=== PATIENT | male | born 1930 | race Caucasian/White ===

== ENCOUNTER → 2017-05-03 | Outpatient (CLI) | payer OTHER, MEDICARE | LOC: SEN 09:14 | DX: C61 Malignant neoplasm of prostate (principal); G62.9 Polyneuropathy, unspecified; I10 Essential (primary) hypertension; B02.29 Other postherpetic nervous system involvement; M19.90 Unspecified osteoarthritis, unspecified site ==

== ENCOUNTER → 2017-08-22 | Outpatient (CLI) | payer OTHER, MEDICARE | LOC: CAT 15:14 | DX: I10 Essential (primary) hypertension (principal); G31.89 Other specified degenerative diseases of nervous system; R26.81 Unsteadiness on feet; Z91.81 History of falling ==

== ENCOUNTER 2018-07-08 19:13 | Emergency (ER) | payer OTHER, MEDICARE ==
[~2018-07-08] VITALS: Ht 185.4 cm; Wt 90.7 kg
[2018-07-08 20:27] LABS: URINE BILIRUBIN NEGATIVE (Negative); URINE BLOOD NEGATIVE (Negative); URINE CLARITY CLEAR; URINE COLOR YELLOW; URINE GLUCOSE-RANDOM* NEGATIVE (Negative); URINE KETONES NEGATIVE (Negative); URINE LEUKOCYTES-REFLEX NEGATIVE (Negative); URINE NITRITE-REFLEX NEGATIVE (Negative); URINE PROTEIN (DIPSTICK) NEGATIVE (Negative); URINE SPECIFIC GRAVITY >= 1.030 (1.005-1.035); URINE UROBILINOGEN 0.2 E.U./dl (0.2-1.0)
[2018-07-08 21:12] LABS: ANION GAP 4 mmol/L (7-16); BUN 27 mg/dL (7-18); CALCIUM 9.1 mg/dL (8.5-10.1); CHLORIDE 103 mmol/L (98-107); CO2 32 mmol/L (21-32); CREATININE 1.2 mg/dL (0.7-1.3); GLUCOSE 115 mg/dL (74-106); POTASSIUM 3.8 mmol/L (3.5-5.1); SODIUM 139 mmol/L (136-145)
[2018-07-08 21:21] LABS: ALBUMIN 3.2 g/dL (3.4-5.0); LIPASE 131 U/L (73-393); SGOT 21 U/L (15-37); SGPT 36 U/L (30-65); TOTAL BILIRUBIN 0.7 mg/dL (<0.1-1.0); TOTAL PROTEIN 7.2 g/dL (6.4-8.2); TROPONIN-I <0.06 ng/mL (<0.06)
[2018-07-08 21:29] LABS: HEMATOCRIT 42.9 % (42.0-52.0); HEMOGLOBIN 14.4 gm/dL (14.0-18.0); MCH 30.9 pg (26.0-34.0); MCHC 33.7 g/dL (28.0-37.0); MCV 91.9 fL (80.0-100.0); PLATELET COUNT 182 thou/uL (150-400); RBC 4.67 mil/uL (4.50-6.00); RDW 14.3 % (10.5-14.5); WBC 6.4 thou/uL (4.0-11.0)
[2018-07-08 22:13] LABS: ABSOLUTE NEUTROPHILS 3.5 thou/uL (1.4-8.2); ATYPICAL LYMPHS 22 %
[2018-07-09 00:33] VITALS: BP 133/66
--- NOTE | 2018-07-09 13:41 | EKG ---
[facility] [place] [address] ELECTROCARDIOGRAM REPORT Name: GENIE VENTURA PIA Room #: DEP 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1930 Requested By: Rainer Pryor Order Number: [id number] MD: Juve Miller Measurements Intervals Isabella Rate: 66 P: UT: QRS: -52 QRSD: 110 T: 86 QT: 393 QTc: 412 Interpretive Statements Sinus rhythm with first-degree AV block Left anterior fascicular block Low voltage, precordial leads Abnormal R-wave progression, early transition Borderline repolarization abnormality No previous ECG available for comparison Electronically Signed On 07-09-2018 13:40:48 CDT by Juve Miller [email or web address] ��������������������������������������������� <ELECTRONICALLY SIGNED> ���������������������������������������� By: Juve Miller MD, [facility] ��������������������������������������������� 07/09/18 1340 [id number] Juve Miller MD, FAC /EPI
== END 2018-07-09 01:07 | disposition home or self-care (01) ==
LOC: ER 19:13
PROVIDERS: Emergency Medicine
DX: K59.00 Constipation, unspecified (principal); I10 Essential (primary) hypertension; K21.9 Gastro-esophageal reflux disease without esophagitis; Z85.46 Personal history of malignant neoplasm of prostate

== ENCOUNTER → 2018-09-26 | Outpatient (CLI) | payer OTHER, MEDICARE ==
[~2018-09-26] VITALS: Ht 154.9 cm; Wt 86.6 kg
[~2018-09-26] MED LIST: DIOVAN160 MG PO; FISH OIL 1,001000 M2 PO; HYDROCHLOROTH12.5 M2 PO; MAGOX 400400 MG PO; OXYBUTYNIN 5 MG5 M2 PO; PROTONIX 20 MG20 M1 PO; TRAMADOL 50 MG50 MG PO; UNICOMPLEX M TA1 TA1 PO; VITAMIN B-12500 MCG PO; VITAMINC500 PO
--- NOTE | ~2018-09-26 | HPC ---
[facility] [place] [address] PAIN MANAGEMENT CONSULTATION Name: GENIE VENTURA Room #: REG [facility] JohnsonWilliamAbigail.#: [id number] Admission: 09/26/18 ������������������ Attend Phys: Manjinder Andre DO Discharge: ������������������ Date of : 32 Report #: [id number] THIS REPORT FOR: //name// CC: Artur Andre DATE OF SERVICE: 09/26/2018 REFERRING PHYSICIAN: Artur Avila MD. CHIEF COMPLAINT: Low back pain, bilateral buttock and posterolateral thigh pain. HISTORY OF PRESENT ILLNESS: As you know, the patient is a pleasant 87-year-old male who has been referred to our service to discuss treatment options for low back pain, bilateral upper buttock and posterolateral thigh pain. The patient has been sent to us by his primary care physician, Dr. Brian Avila, for evaluation after the patient had failed conservative treatment options. The patient comes to us today reporting a pain score of 8/10. He has not undergone any formalized physical therapy. He is doing some home physical stretching and traction techniques, but nothing formalized. He was started on tramadol, which he found unhelpful. The patient has had a significant treatment for prostate cancer, undergoing prostatectomy 20 years ago, with recurrence of his prostate cancer requiring 37 sessions of radiation via external beam. He appears to be recovering from this treatment. He has been referred to our clinic today without any imaging studies for evaluation. The patient reports today pain is continuous, steady and constant, describes the pain as aching, throbbing, sharp, places current pain score 8/10, daily average at 8/10, worst pain has been 10/10. The patient states the pain is exacerbated with getting up and sitting back down, improves with lying down on his back. The patient indicates that his pain has intensified after his external beam radiation. There has been no followup from an imaging standpoint in regards to his prostate issues, nor evaluation of the low back with exacerbation of symptoms after recurrence of his prostate cancer. PAST MEDICAL HISTORY: 1. Hypertension. 2. Degenerative joint disease. 3. Osteoarthritis. 4. Prostate cancer, status post prostatectomy 20 years ago with recurrence of prostate cancer and 37 sessions of external beam radiation. PAST SURGICAL HISTORY: 1. Tonsillectomy. [address] [address] PAIN MANAGEMENT CONSULTATION Name: GENIE VENTURA NOBLE Room #: REG [facility]..#: [id number] Admission: 09/26/18 ������������������ Attend Phys: Manjinder Andre DO Discharge: ������������������ Date of : 32 Report #: [id number] 2. Appendectomy. 3. Prostatectomy. SOCIAL HISTORY: The patient denies tobacco, alcohol, IV or illicit drug use. 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 He is working, not receiving workmen's compensation nor is trying to obtain disability benefits. He is not in litigation in regards to pain. REVIEW OF SYSTEMS: Positive for weight change, decrease in appetite, weakness, hearing loss with tinnitus, shortness of breath with walking or lying flat, loss of appetite, changes in bowel movements, constipation, abdominal pain, frequent urination, nocturia, change of force or stream of urination, incontinence and dribbling to urine, low back pain, bilateral buttock and posterolateral thigh pain, weakness, excessive urination. All other review of systems negative per 12-point review of systems other than those listed in history of present illness. Pain impact score 44/70 indicating moderate interference of daily activity secondary to pain. ALLERGIES: No known drug allergies. CURRENT MEDICATIONS: Multivitamin 1 tab per day, ascorbic acid 500 mg once a day, magnesium oxide 400 mg once a day, omega-3 fish oil 1 tab per day, cyanocobalamin 500 mcg per day, pantoprazole 20 mg once a day, oxybutynin 5 mg twice a day, valsartan 160 mg once a day, hydrochlorothiazide 12.5 mg once a day. IMAGING: No imaging available. PQRS: The patient has known arthritic changes of the lumbar spine, bilateral knees, no rheumatoid arthritis. He is placing pain intensity 8/10. He is a fall risk, but has not had a fall in the last 3 months. He is not utilizing any type of ambulatory device. He is not on blood thinners. He is treated for hypertension. He is not on the long-term opioids, but does have a low opioid addiction potential, is placing pain impact score 44/70, moderate interference of daily activities secondary to pain. PHYSICAL EXAMINATION: VITAL SIGNS: Blood pressure 143/73, pulse 70, respiratory rate 16 and unlabored. The patient is 100% on room air, height 6 feet 1 inch tall, weight 191 pounds. GENERAL: Well-developed, well-nourished, well-hydrated 87-year-old male, appearing stated age, placing current pain score at 8/10. HEENT: Normocephalic, atraumatic. Pupils equal, round, reactive to light. Extraocular muscles are intact. Sclerae nonicteric without injection. [facility] [address] [place] [address] PAIN MANAGEMENT CONSULTATION Name: GENIE VENTURA Room #: REG [facility]#: [id number] Admission: 09/26/18 ������������������ Attend Phys: Manjinder Andre DO Discharge: ������������������ Date of : 32 Report #: [id number] NEUROLOGIC: Cranial nerves 2 through 12 grossly intact. Speech is fluent. The patient deemed a good historian. LUNGS: Clear, no wheeze, rhonchi or rales. CARDIOVASCULAR: Regular. No appreciable gallop, no rub. ABDOMEN: Soft, nontender, nondistended, normoactive bowel sounds. EXTREMITIES: Show no clubbing, no cyanosis, and no edema. MUSCULOSKELETAL: Lower extremity strength appears symmetrical 5/5. There does not appear to be any giveaway strength secondary to pain. Muscle bulk and tone are symmetrical in comparing left lower extremity to right. Ankle clonus negative. Babinski is negative. Lumbar provocation testing is met with increasing pain, mainly with extension and rotation of the lateral lumbar spine. Seated straight leg raising negative. Supine straight leg raising mildly positive. Jerad test negative. Gait mildly antalgic. Station normal. Stance slightly forward flexed lumbar spine. ASSESSMENT: 1. Symptomatic lumbar radiculopathy. 2. Lumbosacral spondylosis with radiculopathy. 3. Chronic intractable pain. PLAN: 1. Based on today's physical exam and history the patient has provided, the description the patient uses in regards to pain as well as the location of symptoms and the provocating factors, likely source of the patient's pain is lumbar radiculopathy. The patient comes to us today without imaging studies, so it is difficult to determine if his symptoms are related to central canal stenosis or bilateral neural foraminal stenosis. There is also no way for us to determine whether or not the patient might have concerns of other disease processes in the lumbar spine. It is somewhat concerning to have an 87-year-old male with recurrent prostate cancer, complaining of increasing low back pain. The patient has undergone external beam radiation, but this does not rule out the possibility of complications from his prostate cancer and external beam radiation in the lumbar spine. We discussed with the patient treatment options for typical lumbar radicular symptoms, whether this be central canal stenosis or neural foraminal stenosis. Following was discussed with the patient today 2. We discussed physical therapy, stretching exercises, core strengthening, for which the patient would do better from a pain control standpoint and from a stabilization standpoint. We discussed medication management, making adjustments in his current medication for pain control. We discussed epidural injections under fluoroscopic guidance. We also discussed surgical options. After reviewing risks and benefits of all proposed treatment options, the patient chose to move forward with a lumbar epidural injection. 3. The patient was advised risks and benefits of a lumbar epidural injection. These risks include but are not necessarily limited to bleeding, bruising, [facility] [address] [place] [address] PAIN MANAGEMENT CONSULTATION Name: GENIE VENTURA PIA [facility] [id number] Admission: 09/26/18 ������������������ Attend Phys: Manjinder Andre DO Discharge: ������������������ Date of : 32 Report #: [id number] infection, worsening pain, no relief of pain, also risk of temporary or permanent muscle weakness, temporary or permanent nerve damage, possible paralysis, post-dural puncture headache and . The patient states understood and wished to proceed. 4. No medication changes made at today's visit. The patient will continue current medical therapy as previously prescribed. 5. We will see the patient back in followup visit on an as needed basis for possible next in the series of epidural injections. I have advised the patient if he does not note improvement in symptoms with today's procedure, he should contact his primary care physician to begin imaging workups for further evaluation. 6. We wish to thank Dr. Artur Avila for the referral of the patient to our clinic. We will keep you apprised of his response to treatment as we address suspected lumbar radiculopathy. Again, we wish to thank you for the opportunity to see the patient in consultation. PROCEDURE NOTE DESCRIPTION OF PROCEDURE: L5-S1 interlaminar epidural steroid injection under fluoroscopic guidance. This is the first procedure of the first series that the patient is undergoing. After obtaining written consent, the patient was taken back to the fluoroscopy suite, placed in a prone position with pillow under the abdomen to decrease lumbar lordosis. The skin overlying the lumbosacral area was then prepped and draped in aseptic fashion. The L5-S1 vertebral interspace was then identified by AP fluoroscopy. The skin and subcutaneous tissue overlying the target site of injection was anesthetized with 3 mL 1% lidocaine. A 20-gauge 3-1/2 inch Tuohy needle was then advanced under fluoroscopic guidance towards the epidural space using a paracentral approach. The epidural space was identified using loss of resistance to air technique. After negative aspiration for heme or cerebrospinal fluid, a total of 1 mL of Omnipaque was injected. A lumbar epidurogram was confirmed using both AP and lateral fluoroscopy. After negative aspiration for heme or cerebrospinal fluid, 5 mL of solution containing 2 mL 40 mg per mL, 80 mg total triamcinolone, 3 mL lidocaine 1% was injected in increments. Contrast spread was noted in posterior epidural space. The needle was then retracted approximately half way and needle tract flushed with 1 mL of 1% lidocaine. Needle was then removed. There were no apparent sensory or motor deficits in the lower extremity following the procedure. A sterile bandage was placed over the injection site. The heart rate, pulse, oximetry and blood pressure were continuously monitored [address] [address] PAIN MANAGEMENT CONSULTATION Name: GENIE VENTURA PIA [facility] [id number] Admission: 09/26/18 ������������������ Attend Phys: Manjinder Andre DO Discharge: ������������������ Date of : 32 Report #: [id number] after the procedure. There were no apparent complications. The patient tolerated the procedure well and was carefully escorted to the recovery room in stable condition. There were no apparent complications. After meeting discharge criteria, the patient was then discharged home. ��������������������������������������������� ���������������������������������������� By: ��������������������������������������������� [id number] [id number] Manjinder Andre DO /nt
[2018-09-26 15:16] VITALS: BP 143/73
--- NOTE | 2018-09-26 15:33 | NUR ---
Pain Clinic Assessment: 1. History of Osteoarthritis: History of Rheumatoid Arthritis: 2. Height: 5 ft. 1 in. 154.9 cm. Weight: 191.0 lb. oz. 86.637 kg. Patient's BMI: 36.1 3. Vital Signs: BP: 143/73 Pulse: 70 Resp: 16 Temp: 02 Sat: 100 ECG Mon: 4. Pain Intensity: 8 5. Fall Risk: Dizziness: N Needs help standing or walking: Y Fallen in the last 3 months: N Fall risk comments: 6. Patient on Blood Thinner: None 7. History of Hypertension: Y 8. Opioid Therapy greater than 6 weeks: Opiate Contract Signed: 9. Risk Assessment Tool Provided: LOW 10. Functional Assessment Tool: 11. Recreational Drug Use: Never Drug Type: Tobacco Use: Never Smoker Tobacco Type: Amount or Packs/day: How Many Years: Alcohol Use: No Frequency: Quant:
== END | disposition home or self-care (01) ==
LOC: PAIN 06:57
DX: M47.27 Other spondylosis with radiculopathy, lumbosacral region (principal); G89.29 Other chronic pain; I10 Essential (primary) hypertension; M19.90 Unspecified osteoarthritis, unspecified site; M17.0 Bilateral primary osteoarthritis of knee; Z85.46 Personal history of malignant neoplasm of prostate; Z90.49 Acquired absence of other specified parts of digestive tract; Z98.890 Other specified postprocedural states; Z79.899 Other long term (current) drug therapy

== ENCOUNTER → 2018-10-17 | Outpatient (CLI) | payer OTHER, MEDICARE ==
[~2018-10-17] VITALS: Ht 185.4 cm; Wt 84.1 kg
[2018-10-17 10:31] VITALS: BP 140/76
--- NOTE | 2018-10-17 10:51 | NUR ---
Pain Clinic Assessment: 1. History of Osteoarthritis: BACK History of Rheumatoid Arthritis: Not Applicable 2. Height: 6 ft. 1 in. 185.4 cm. Weight: 185.4 lb. oz. 84.097 kg. Patient's BMI: 24.5 3. Vital Signs: BP: 140/76 Pulse: 60 Resp: 16 Temp: 02 Sat: 100 ECG Mon: 4. Pain Intensity: 1-2 5. Fall Risk: Dizziness: N Needs help standing or walking: N Fallen in the last 3 months: N Fall risk comments: 6. Patient on Blood Thinner: None 7. History of Hypertension: Y 8. Opioid Therapy greater than 6 weeks: N Opiate Contract Signed: 9. Risk Assessment Tool Provided: LOW 10. Functional Assessment Tool: 44/ 11. Recreational Drug Use: Never Drug Type: Tobacco Use: Never Smoker Tobacco Type: Amount or Packs/day: How Many Years: Alcohol Use: No Frequency: Quant:
--- NOTE | 2018-10-24 13:04 | HPC ---
[facility] [place] [address] [place] [address] PAIN MANAGEMENT CONSULTATION Name: GENIE VENTURA Room #: REG [facility]..#: [id number] Admission: 10/17/18 ������������������ Attend Phys: Manjinder Andre DO Discharge: ������������������ Date of : 32 Report #: [id number] THIS REPORT FOR: //name// CC: Artur Andre DATE OF SERVICE: 10/17/2018 REFERRING PHYSICIAN: Artur Avila MD CHIEF COMPLAINT: Low back pain, bilateral buttock and posterolateral thigh pain. HISTORY OF PRESENT ILLNESS: As you know, the patient is a very pleasant 88-year-old male referred to our service to discuss treatment options for low back pain, bilateral upper buttock and posterolateral thigh pain. We saw the patient in consultation 09/26/2018 where he received epidural injection under fluoroscopic guidance to address lumbar radicular symptoms. He returns today in followup visit indicating near complete resolution of symptoms. He is placing his current pain score no greater than 1-2/10. He returns today in followup visit to discuss options for treatment if his pain does return. He has been able to return to all activities of daily living without significant pain interference, very pleased about that the response to the initial epidural. ALLERGIES: No known drug allergies. CURRENT MEDICATIONS: Multivitamin, ascorbic acid, magnesium oxide, omega-3 fish oil, cyanocobalamin, pantoprazole, oxybutynin, valsartan, and hydrochlorothiazide. SOCIAL HISTORY: The patient denies tobacco, alcohol, IV, or illicit drug use. 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 He is working, not receiving workmen's compensation, accompanied by his daughter present in room today. PQRS: The patient has arthritic changes of lumbar spine, bilateral knees, but no rheumatoid arthritis. He is placing pain intensity today 1-2/10. He is not a fall risk, has not had fall in the last 3 months. He is not on blood thinners. He is treated for hypertension. He is not on any opioids and does have a low opioid addiction potential. He is placing pain impact score 44/70. PHYSICAL EXAMINATION: VITAL SIGNS: Blood pressure 140/76, pulse is 60, respiratory rate 16 and unlabored. The patient is 100% on room air, height 6 feet 1 inch tall, weight 185.4 pounds, BMI calculated 24.5. GENERAL: Well-developed, well-nourished, well-hydrated, 88-year-old male, [place] [address] PAIN MANAGEMENT CONSULTATION Name: GENIE VENTURA Room #: REG CLI [facility]#: [id number] Admission: 10/17/18 ������������������ Attend Phys: Manjinder Andre DO Discharge: ������������������ Date of : 32 Report #: [id number] appearing stated age. Pain is rated 1-2/10. HEENT: Normocephalic, atraumatic. Pupils equal, round, reactive to light. Speech fluent. EXTREMITIES: Show no clubbing, no cyanosis, and no edema. MUSCULOSKELETAL: Lower extremity strength remains symmetrical 5/5. Giveaway strength is reduced today as he is experiencing no pain with these maneuvers. Seated straight leg raising negative. Supine straight leg raising remains positive. Jerad's test negative. Modified Gaenslen's positive for axial low back pain. ASSESSMENT: 1. Symptomatic lumbar radiculopathy. 2. Lumbosacral spondylosis with radiculopathy. 3. Chronic intractable pain. PLAN: 1. The patient has returned today in followup visit having noted excellent improvement in overall pain. He is now placing pain score no greater than 1-2/10. He is extremely pleased with response to the initial injection. He returns today in followup visit, specifically to discuss treatment options if his pain does return. At present, he has been able to return to all activities of daily living without pain interference. He is able to go about all of his reported duties without pain or paresthesias. At this point, I would indicate to the patient, we will delay the next in the series of epidural injections until which time his pain returns to a level of intolerable. We would be more than willing to provide a return visit if that occurs. 2. The patient will be provided a return visit upon phone call. We recommend next in the series of epidural injections if his pain does return. We are hopeful this is a long period in the future. We are pleased to see he has done well, but will be available to see him back to do the next in a series of epidural injections. If these are ineffective, then look towards other more aggressive treatment options. ��������������������������������������������� <ELECTRONICALLY SIGNED> ���������������������������������������� By: Manjinder Andre DO ��������������������������������������������� 10/24/18 1304 [id number] Manjinder Andre DO /nt
== END ==
LOC: PAIN 06:45
DX: M47.27 Other spondylosis with radiculopathy, lumbosacral region (principal); G89.29 Other chronic pain; M79.651 Pain in right thigh; M79.652 Pain in left thigh

== ENCOUNTER → 2019-03-12 | Outpatient (CLI) | payer OTHER, MEDICARE | LOC: HYPER 08:00 | DX: L89.320 Pressure ulcer of left buttock, unstageable (principal); I10 Essential (primary) hypertension; M54.42 Lumbago with sciatica, left side; M54.41 Lumbago with sciatica, right side; R63.0 Anorexia; R26.89 Other abnormalities of gait and mobility; Z85.46 Personal history of malignant neoplasm of prostate; Z87.891 Personal history of nicotine dependence ==

== ENCOUNTER → 2019-05-16 | Outpatient (CLI) | payer OTHER, MEDICARE ==
[~2019-05-16] VITALS: Ht 185.4 cm; Wt 86.7 kg
--- NOTE | ~2019-05-16 | HPC ---
[facility] [place] [address] PAIN MANAGEMENT CONSULTATION Name: GENIE VENTURA Room #: REG [facility] M..#: [id number] Admission: 05/16/19 Attend Phys: Manjinder Andre DO Discharge: Date of : 32 Report #: [id number] THIS REPORT FOR: //name// CC: Artur Andre DATE OF SERVICE: 05/16/2019 CHIEF COMPLAINT: Low back pain, bilateral buttock and posterolateral thigh pain. HISTORY OF PRESENT ILLNESS: As you know, the patient is a very pleasant 88-year-old male referred to our service to discuss treatment options for bilateral low back pain, bilateral upper buttock and posterolateral thigh pain. The patient was seen in consultation per the request of Dr. Avila on 09/26/2018, diagnosed with lumbar radiculopathy as well as facet arthropathy of the lumbar spine and at that visit, we discussed treatment options to address ongoing pain including physical therapy, stretching exercise, core strengthening, medication management, epidural injections, and surgical options. He underwent a lumbar epidural injection, which provided excellent benefit. We saw him back in consultation on 10/17/2018 and at that time, reporting 100% improvement in overall pain. He returns today in followup visit stating he has a pain score of 0/10 today. He states over the past couple of days, he had some exacerbation of symptoms that he placed at 1-2/10, but no new injury or trauma. He returns today to discuss options for treatment, if his pain does return. ALLERGIES: No known drug allergies. CURRENT MEDICATIONS: Multivitamin, ascorbic acid, magnesium oxide, omega-3 fish oil, cyanocobalamin, pantoprazole, oxybutynin, valsartan and hydrochlorothiazide. SOCIAL HISTORY: The patient denies tobacco, alcohol, or IV illicit drug use. 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 He is accompanied by his daughter, who is present in room today. PQRS: The patient has known arthritic changes of the lumbar spine, bilateral knees. No rheumatoid arthritis. He is placing pain intensity of 0/10. He is not a fall risk, has not had a fall in last 6 months. He is not on blood thinners. He is treated for hypertension. He is not on chronic opioids, has a low opioid addiction potential based on our assessment tool. Pain impact score today is 24/70, 44/70 prior to today. PHYSICAL EXAMINATION: VITAL SIGNS: Blood pressure 155/72, pulse 60, respiratory rate 14 and [facility] [address] [place] [address] PAIN MANAGEMENT CONSULTATION Name: GENIE VENTURA Room #: REG [facility]#: [id number] Admission: 05/16/19 Attend Phys: Manjinder Andre DO Discharge: Date of : 32 Report #: [id number] unlabored. The patient is 99% on room air, height 6 feet 1 inch tall, and weight 191.2 pounds. BMI calculated 25.2. GENERAL: Well-developed, well-nourished, well-hydrated, 88-year-old male appearing stated age. Pain is rated today at around 0/10. HEENT: Normocephalic, atraumatic. Pupils equal, round, reactive. Speech is fluent. EXTREMITIES: Show no clubbing, no cyanosis, and no edema. MUSCULOSKELETAL: Lower extremity strength appears symmetrical again today 5/5. Giveaway strength is not noted with any maneuver. Seated straight leg raising negative. Supine straight leg raising is positive. Jerad's test negative. Modified Gaenslen's positive for axial low back pain. Gait appears normal. Stance slightly forward flexed to lumbar spine, loss of lordotic curvature. ASSESSMENT: 1. Symptomatic lumbar radiculopathy. 2. Lumbosacral spondylosis with radiculopathy. 3. Chronic intractable pain. PLAN: 1. The patient returns today in followup visit now noting 0/10 pain. Over the past couple of days, he states his pain was at a level of 2-3/10. He woke this morning and pain is improved. He and I discussed the possibility of undergoing an epidural injection. We will both determine to delay would be most appropriate. He and I did discuss that if his symptoms do return, we would be more than willing to see him back in followup visit to undergo next in the series of epidural injections. We are pleased to see the patient is doing well from a pain standpoint. We will see him back on an as needed basis. 2. No medication changes made at today's visit. The patient will continue current medical therapy as previously prescribed. 3. We will see the patient back in followup visit on an as needed basis for next in the series of lumbar epidural injections. We will be returning his care to your capable services, but be available to see him back when necessary. By: [id number] Manjinder Andre DO /nt
[2019-05-16 14:05] VITALS: BP 155/72
--- NOTE | 2019-05-16 14:19 | NUR ---
Pain Clinic Assessment: 1. History of Osteoarthritis: BACK History of Rheumatoid Arthritis: DENIES 2. Height: 6 ft. 1 in. 185.4 cm. Weight: 191.2 lb. oz. 86.728 kg. Patient's BMI: 25.2 3. Vital Signs: BP: 155/72 Pulse: 60 Resp: 14 Temp: 02 Sat: 99 ECG Mon: 4. Pain Intensity: 0 5. Fall Risk: Dizziness: N Needs help standing or walking: N Fallen in the last 3 months: N Fall risk comments: 6. Patient on Blood Thinner: None 7. History of Hypertension: Y 8. Opioid Therapy greater than 6 weeks: N Opiate Contract Signed: 9. Risk Assessment Tool Provided: LOW 10. Functional Assessment Tool: 11. Recreational Drug Use: Never Drug Type: Tobacco Use: Never Smoker Tobacco Type: Amount or Packs/day: How Many Years: Alcohol Use: No Frequency: Quant:
== END ==
LOC: PAIN 07:02
DX: M47.27 Other spondylosis with radiculopathy, lumbosacral region (principal); M51.16 Intervertebral disc disorders with radiculopathy, lumbar region; G89.4 Chronic pain syndrome; Z79.899 Other long term (current) drug therapy; Z88.8 Allergy status to other drugs, medicaments and biological substances

== ENCOUNTER → 2019-06-12 | Outpatient (CLI) | payer OTHER, MEDICARE ==
[~2019-06-12] VITALS: Ht 185.4 cm; Wt 88.4 kg
[2019-06-12 08:10] VITALS: BP 129/81
--- NOTE | 2019-06-12 08:17 | NUR ---
Pain Clinic Assessment: 1. History of Osteoarthritis: BACK History of Rheumatoid Arthritis: Not Applicable 2. Height: 6 ft. 1 in. 185.4 cm. Weight: 194.8 lb. oz. 88.361 kg. Patient's BMI: 25.7 3. Vital Signs: BP: 129/81 Pulse: 69 Resp: 16 Temp: 02 Sat: 98 ECG Mon: 4. Pain Intensity: 4-5 5. Fall Risk: Dizziness: N Needs help standing or walking: N Fallen in the last 3 months: N Fall risk comments: 6. Patient on Blood Thinner: None 7. History of Hypertension: Y 8. Opioid Therapy greater than 6 weeks: N Opiate Contract Signed: 9. Risk Assessment Tool Provided: LOW 10. Functional Assessment Tool: / 11. Recreational Drug Use: Never Drug Type: Tobacco Use: Never Smoker Tobacco Type: Amount or Packs/day: How Many Years: Alcohol Use: No Frequency: Quant:
--- NOTE | 2019-06-19 07:45 | HPC ---
[facility] [address] [place] [address] PAIN MANAGEMENT CONSULTATION Name: GENIE VENTURA Room #: REG [facility]..#: [id number] Admission: 06/12/19 Attend Phys: Manjinder Andre DO Discharge: Date of : 32 Report #: [id number] THIS REPORT FOR: cc: Brian Avila MD, Christopher B. MD Johnson, James E. DO ~ THIS REPORT FOR: //name// DATE OF SERVICE: 06/12/2019 REFERRING PHYSICIAN: Dr. Brian Avila CHIEF COMPLAINT: Low back pain, bilateral buttock and posterolateral thigh pain. HISTORY OF PRESENT ILLNESS: As you know, the patient is a very pleasant 88-year-old male who returns today in followup visit, now reporting pain score anywhere from 3-5/10. He states his pain has reached a level of intolerability and he was returned to undergo next in the series of epidural injections. As you are aware, previous epidural injection gave excellent benefit. He returns today requesting next in the series in hopes of improving pain. He denies injury or trauma that may have led to symptoms reoccurrence. He describes the pain as sharp and aching in sensation as well as numbness and tingling. He indicates a low back and bilateral legs as the distribution. Bending and getting out of a chair exacerbate symptoms; nothing tends to improve his pain except for the previous epidural injection. He returns today for next in the series of epidural injections. ALLERGIES: No known drug allergies. CURRENT MEDICATIONS: Multivitamin, ascorbic acid, magnesium oxide, omega-3 fish oil, cyanocobalamin, oxybutynin, valsartan, and hydrochlorothiazide. SOCIAL HISTORY: The patient denies tobacco, alcohol, IV or illicit drug use. 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 He is accompanied by his daughter present in room today. IMAGING: No new imaging available. PQRS: The patient has known arthritic changes of the lumbar spine, bilateral knees. No rheumatoid arthritis. He is placing pain intensity up to 4-5/10. He is not a fall risk, has not had a fall in last 3 months. He is not on blood thinners, but is treated for hypertension. He is not on chronic opioids and has a low opioid addiction potential based on our assessment tool. Pain impact [address] [address] PAIN MANAGEMENT CONSULTATION Name: GENIE VENTURA [place] Room #: REG [facility].#: [id number] Admission: 06/12/19 Attend Phys: Manjinder Andre DO Discharge: Date of : 32 Report #: [id number] score 44/70 indicating moderate to severe interference of daily activities secondary to pain. PHYSICAL EXAMINATION: VITAL SIGNS: Blood pressure 129/81, pulse 69, respiratory rate 16 and unlabored. The patient is 98% on room air, height 6 feet 1 inch tall, weight 194.8 pounds and BMI calculated 25.7. GENERAL: Well-developed, well-nourished, well-hydrated, 88-year-old male appearing stated age, pain is rated today 4-5/10. HEENT: Normocephalic, atraumatic. Pupils equal, round, reactive to light. EXTREMITIES: Show no clubbing, no cyanosis, and no edema. MUSCULOSKELETAL: Lower extremity strength appears symmetrical again today 5/5, intact to light touch from L1 through S2 dermatomes. Seated straight leg raising negative. Supine straight leg raising positive with more leftward positive than right, though both positive above 65 degrees. Jerad's test negative. Modified Gaenslen's positive for axial low back pain. Ankle clonus negative. Gait normal. ASSESSMENT: 1. Symptomatic lumbar radiculopathy. 2. Lumbosacral spondylosis with radiculopathy. 3. Chronic intractable pain. PLAN: 1. The patient has returned today in followup visit requesting next in the series of lumbar epidural injections under fluoroscopic guidance. The patient states he has done very well with previous epidural injection performed on 09/26/2018. We saw the patient back in followup visit 10/17/2018. He was doing very well. He has been lost a followup visit until today where he has returned requesting next in the series of epidural injections. He states that his pain be returned spontaneously without inciting injury or trauma. He returns today, requesting an epidural injection under fluoroscopic guidance. He has been advised risks and benefits of the procedure, states he understood, and wished to proceed. 2. No medication changes made at today's visit. The patient will continue current medical therapy as prior prescribed. 3. We will see the patient back in followup visit on an as needed basis for possible next in the series of epidural injections. PROCEDURE NOTE DESCRIPTION OF PROCEDURE: L5-S1 interlaminar epidural steroid injection under fluoroscopic guidance. This is the second procedure of the first series that the patient is undergoing. [facility] [address] [place] [address] PAIN MANAGEMENT CONSULTATION Name: GENIE VENTURA Room #: REG [facility] [id number] Admission: 06/12/19 Attend Phys: Manjinder Andre DO Discharge: Date of : 32 Report #: [id number] After obtaining written consent, the patient was taken back to the fluoroscopy suite, placed in a prone position with pillow under the abdomen to decrease lumbar lordosis. The skin overlying the lumbosacral area was then prepped and draped in aseptic fashion. The L5-S1 vertebral interspace was then identified by AP fluoroscopy. The skin and subcutaneous tissue overlying the target site of injection was anesthetized with 3 mL 1% lidocaine. A 20-gauge 3-1/2 inch Tuohy needle was then advanced under fluoroscopic guidance towards the epidural space using a left parasagittal approach. The epidural space was identified using loss of resistance to air technique. After negative aspiration for heme or cerebrospinal fluid, a total of 1 mL of Omnipaque was injected. A lumbar epidurogram was confirmed using both AP and lateral fluoroscopy. After negative aspiration for heme or cerebrospinal fluid, 5 mL of a solution containing 2 mL 40 mg per mL, 80 mg total triamcinolone along with 3 mL of lidocaine 1% was injected in increments. Contrast spread was noted posterior epidural space. The needle was then retracted approximately half way and needle tract flushed with 1 mL of 1% lidocaine. Needle was then removed. There were no apparent sensory or motor deficits in the lower extremity following the procedure. A sterile bandage was placed over the injection site. The heart rate, pulse, oximetry and blood pressure were continuously monitored after the procedure. There were no apparent complications. The patient tolerated the procedure well and was carefully escorted to the recovery room in stable condition. There were no apparent complications. After meeting discharge criteria, the patient was then discharged home. <ELECTRONICALLY SIGNED> By: Manjinder Andre DO 06/19/19 0745 [id number] Manjinder Andre DO /shelly
== END | disposition home or self-care (01) ==
LOC: PAIN 06:45
DX: M47.27 Other spondylosis with radiculopathy, lumbosacral region (principal); G89.29 Other chronic pain; M19.90 Unspecified osteoarthritis, unspecified site; Z98.890 Other specified postprocedural states; Z79.899 Other long term (current) drug therapy

== ENCOUNTER → 2019-09-26 | Outpatient (CLI) | payer OTHER, MEDICARE | LOC: HYPER 11:43 | DX: S31.829D Unspecified open wound of left buttock, subsequent encounter (principal); L57.8 Other skin changes due to chronic exposure to nonionizing radiation; R26.89 Other abnormalities of gait and mobility; M54.42 Lumbago with sciatica, left side; M54.41 Lumbago with sciatica, right side; C61 Malignant neoplasm of prostate; I10 Essential (primary) hypertension; Z90.49 Acquired absence of other specified parts of digestive tract; Z87.891 Personal history of nicotine dependence; Z85.46 Personal history of malignant neoplasm of prostate; X58.XXXD Exposure to other specified factors, subsequent encounter ==

== ENCOUNTER 2020-01-10 15:13 | Inpatient (IN) | payer OTHER, MEDICARE ==
[~2020-01-10] VITALS: Ht 185.4 cm; Wt 89.4 kg
[2020-01-10 15:19] VITALS: BP 134/75
[2020-01-10 16:24] LABS: HEMOGLOBIN 14.9 gm/dL (14.0-18.0); MCHC 33.2 g/dL (28.0-37.0); MCV 93.4 fL (80.0-100.0); PLATELET COUNT 175 thou/uL (150-400); RBC 4.82 mil/uL (4.50-6.00); RDW 13.5 % (10.5-14.5); WBC 9.2 thou/uL (4.0-11.0)
[2020-01-10 16:30] LABS: URINE BILIRUBIN NEGATIVE (Negative); URINE BLOOD 2+ (Negative); URINE CLARITY CLOUDY; URINE COLOR YELLOW; URINE GLUCOSE-RANDOM* NEGATIVE (Negative); URINE KETONES NEGATIVE (Negative); URINE PROTEIN (DIPSTICK) 2+ (Negative); URINE UROBILINOGEN 0.2 E.U./dl (0.2-1.0)
[2020-01-10 16:34] LABS: CALCIUM 9.3 mg/dL (8.5-10.1); CREATININE 1.3 mg/dL (0.7-1.3); POTASSIUM 4.5 mmol/L (3.5-5.1)
[2020-01-10 16:37] LABS: URINE LEUKOCYTES-REFLEX 3+ (Negative); URINE NITRITE-REFLEX POSITIVE (Negative)
[2020-01-10 16:40] LABS: ALBUMIN 3.6 g/dL (3.4-5.0); DIRECT BILIRUBIN 0.3 mg/dL (<0.1-0.2); TOTAL BILIRUBIN 1.6 mg/dL (0.2-1.0); TOTAL PROTEIN 7.5 g/dL (6.4-8.2)
[2020-01-10 16:44] LABS: CASTS None Seen /LPF (None Seen); CRYSTALS None Seen /LPF (None Seen); SQUAMOUS None Seen /LPF (0-3); URINE RBC 3-10 Few /HPF (0-2); URINE WBC-REFLEX >25 Many /HPF (0-5)
[2020-01-10 17:16] LABS: ABSOLUTE NEUTROPHILS 6.9 thou/uL (1.4-8.2)
[2020-01-10] MEDS ORDERED: LASIX 40 MG TAB40 MG PO (18:29)
[2020-01-10 19:37] VITALS: BP 138/71
[2020-01-10 20:03] VITALS: BP 127/60
[2020-01-10 21:04] VITALS: BP 132/69
[2020-01-10] MEDS ORDERED: POTASSIUM20 PO (22:09)
[2020-01-10] MEDS ORDERED: CIPRO250 M2 PO (22:10)
[2020-01-10] MEDS ORDERED: ONE DAILY COMP1 EAC1 PO (22:12)
[2020-01-10] MEDS ORDERED: CHILDREN'S ASPI81 M1 PO (22:12)
[2020-01-10] MEDS ORDERED: MAGNESIUM250 M1 PO (22:13)
[2020-01-10] MEDS ORDERED: B COMPLEX1 EACH PO (22:14)
--- NOTE | 2020-01-11 04:55 | NUR ---
Arrived from ER around 2019. Adm hx and assessment completed. Med rec verified with pt.'s . Pt. is very [place]. He requested for sleep med , [employer] notified and order for melatonin obtained.Ultram given for leg pain with some relief then tylenol also given a little later for back pain. He has been afebrile. Cont. on enhanced precaution pending COVID test results. Ambulated to bathroom x1 to void at HS,did not use urinal. Around 29 , he had an episode of shaking/chills though afebrile. He c/o back pain which he said he had for 2 yrs and had been getting injections to manage pain since he can't have surgery. He finally got some sleep after 010. Bed alarm on for safety.
[2020-01-11 05:53] LABS: HEMATOCRIT 40.5 % (42.0-52.0); HEMOGLOBIN 13.4 gm/dL (14.0-18.0); MCH 31.2 pg (26.0-34.0); MCHC 33.1 g/dL (28.0-37.0); MCV 94.1 fL (80.0-100.0); RBC 4.31 mil/uL (4.50-6.00); RDW 13.5 % (10.5-14.5); WBC 9.1 thou/uL (4.0-11.0)
[2020-01-11 06:22] LABS: CALCIUM 8.1 mg/dL (8.5-10.1); CREATININE 1.5 mg/dL (0.7-1.3); POTASSIUM 3.9 mmol/L (3.5-5.1)
[2020-01-11 06:35] VITALS: BP 96/57
[2020-01-11 07:22] VITALS: BP 108/58
[2020-01-11 14:58] VITALS: BP 151/73
--- NOTE | 2020-01-11 16:23 | NUR ---
PT ADMITTED RELATED TO Sepsis,fedver,UTI, R/O COVID. PT'S COVID TEST WAS NEGATIVE. HE IS ON IV ROCEPHIN AND PT AND OT ORDERED. CM REVIEWED CHART AND SPOKE WITH CARE TEAM. CM ATTEMTPED PT TO PT'S ROOM WIHT NO ANSWER. CM CALLED AND SPOKE WITH PT'S SPOUSE SHE INDICATED THEY RESIDE ON A FARM IN A HOUSE WITH 2 STEPS TO ENTER AND NONE INSIDE. 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 PT'S PCPC IS DR. MAURA JHAVERI. SHE INDICATED NO HH HX. SHE INDICATED THAT SHE ANTICAPTED PT RETURNING HOME ONCE MEDICALLY STABLE.
--- NOTE | 2020-01-11 17:08 | NUR ---
ASSUMED CARE OF PATIENT APPROX 1500. PT A&OX4, VSS, CHRONIC BACK PAIN. TRAMADOL GIVEN AND HEATING PAD ORDERED. PATIENT RESTING IN BED. NO SIGNS OF DISTRESS. WILL CONTINUE TO MONITOR.
[2020-01-11 19:42] VITALS: BP 141/63
--- NOTE | 2020-01-12 03:42 | NUR ---
ASSUMED CARE OF PT AT 1900. PT IS A/O X4 AND UP SBA TO THE BR. USES A URINAL WITH ASSISTANCE AT THE BEDSIDE. PT HAD AN ELEVATED TEMP. PRN TYLENOL GIVEN. C/O PAIN WHEN URINATING. MEDICATIONS GIVEN DIRECTED PER JUN. PT IS CURRENTLY LYING IN HIS BED AND APPEARS TO BE SLEEPING. FALL PRECAUTIONS ARE IN PLACE, CALL LIGHT IS WITHIN REACH. WILL CONTINUE TO MONITOR.
[2020-01-12 07:52] VITALS: BP 140/79
--- NOTE | 2020-01-12 10:12 | NUR ---
discussed during prime time via phone call, covid r/o and GI consulted.
--- NOTE | 2020-01-12 15:34 | NUR ---
ASSUMED CARE OF PATIENT AT SHIFT CHANGE. ASSESSMENT CHARTED. MEDICATIONS GIVEN PER MAR. VSS; PATIENT IS A&OX3-4 WITH SOME CONFUSION. VOIDS IN URINALBUT CAN BE INCONTINENT. ABX THX W FLUIDS INFUSING ON L WRIST W NO ISSUES. 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 WORKED W OT TODAY AND DID WELL. PATIENT GETS UP WITH STAND BY ASSISTANCE, REFUSES A WALKER BUT AMBULATES WELL. VOICES MILD BACK PAIN, THERMAL PAD IN PLACE. VOICES NO OTHER NEEDS. WILL CONTINUE TO MONITOR AND FOLLOW PLAN OF CARE
[2020-01-12 15:40] VITALS: BP 133/74
[2020-01-12 20:16] VITALS: BP 144/75
--- NOTE | 2020-01-13 00:01 | NUR ---
ASSUMED CARE OF PT AT 1900. PT IS A/O X4 AND UP X1 WITH BR. NO C/O PAIN OR DISCOMFORT. VSS. AFEBRILE. KPAD NOT IN PLACE AT THIS TIME. C/O INSOMNIA. PRN SLEEP MEDICAITON GIVEN DIRECTED. FALL PRECAUTIONS ARE IN PLACE, CALL LIGHT IS WITHIN REACH. WILL CONTINUE TO MONITOR.
[2020-01-13 07:07] LABS: HBsAG-EMPLOYEE EXPOSURE Negative (Negative); HCV AB-EMPLOYEE EXPOSURE <0.1 (0.0-0.9)
[2020-01-13 08:00] VITALS: BP 162/111
--- NOTE | 2020-01-13 13:24 | NUR ---
Assumed care of patient at 0700. Pt. calm and cooperative. No stated pain. Patient remains isolated for ESBL. Fall precautions in place.
[2020-01-13 15:33] VITALS: BP 155/72
[2020-01-13 20:55] VITALS: BP 157/90
--- NOTE | 2020-01-14 02:54 | NUR ---
patient aox3 confused and forgetful. patient has voided several times this shift, urine is yellow in color. patient denied burning during urination.patient incontinent this shift pericare and barrier cream applied as needed. patient ambulates slowly to the bathroom with steady gaits. patient in bed asleep at this time breathing regular and unlaboured.
--- NOTE | 2020-01-14 11:29 | NUR ---
Assumed patient care at 0715. Vital signs stable (except BP a little elevated, asymptomatic), ABD soft and non-tender, BS x's 4, skin is clean, warm and dry; he voices no complaints of pain. Patient continues to be impulsive, does not remember to use the call light. He is pleasantly confused at times.
--- NOTE | 2020-01-14 14:22 | NUR ---
PT IS PROGRESSING TOWARD GOAL OF DISCHARGING HOME. PT AND OT RECOMMENDING HOME HEALTH. CM ATTEMTPED PT TO PT'S ROOM BUT NO ANSWER. CM CALLED AND SPOKE WITH HIS DTR/DPOA AND SHE INDICATED THAT THEY WOULD BE RECEPTIVE TO SOME HH SERVICES IF RECOMMENDED UPON DC. SHE INDICATED NO PREFERENCE OF PROVIDERS. CM CONFIRMED ADDRESS AND PCP. CM ASKED DC BRAID MAKER TO FAX REFERRAL TO [facility] FOR REVIEW FOR POSSIBLE ADMISSION. LIKELY DC TOMORRROW. CM TO FOLLOW INDICATED WITH DC PLANNING. PT CONTINUES ON IV MEROPENEM.
--- NOTE | 2020-01-14 15:09 | NUR ---
FAXED REFERRAL TO [facility] SPOKE WITH BANG IN INTAKE THEY ARE AT [facility] WITH THERAPY WHERE PT RESIDES. FAXED REFERRAL TO [facility] RECEIVED CONFIRMATION. ANDREW LNAGE TODAY.
--- NOTE | 2020-01-14 15:48 | NUR ---
FAXED REFERRAL TO [facility] SPOKE WITH MICHELLE IN INTAKE THEY CAN ACCEPT. ANTICIPATE DC TOMORROW 01/14.
[2020-01-14 15:49] VITALS: BP 157/90
[2020-01-14 19:39] VITALS: BP 166/76
--- NOTE | 2020-01-15 05:25 | NUR ---
Pt. rested quietly during the night when checked on during frequent rounds. He has been up to the bathroom with stand by assistance. Pt. does c/o some burning pain from his penis, but refused any pain medication intervention when offered. Continues on iv antibiotics for uti. Bed alarm is on.
[2020-01-15 06:20] LABS: ALBUMIN 2.6 g/dL (3.4-5.0); CALCIUM 8.6 mg/dL (8.5-10.1); CREATININE 0.9 mg/dL (0.7-1.3); PHOSPHORUS 2.5 mg/dL (2.5-4.9); POTASSIUM 4.5 mmol/L (3.5-5.1)
[2020-01-15 07:54] VITALS: BP 149/73
[2020-01-15] MEDS ORDERED: TRAMADOL 50 MG50 MG PO (10:35)
[2020-01-15] MEDS ORDERED: FLOMAX0.4 MG PO (10:35)
[2020-01-15] MEDS ORDERED: MACROBID 100 M100 M1 PO (10:40)
[2020-01-15 11:41] VITALS: BP 157/90
--- NOTE | 2020-01-15 11:43 | NUR ---
CARE TEAM INDICATED THAT PT IS MEDICALLY STABLE TO DC HOME THIS DAY[facility] PT FOR HOME HEALTH PT, OT, AND NURSING HH SERVICES. PT'S DTR TO PROVIDE TRANSPORT HOME THIS DAY. NO OTHER CM INTERVENTION INDICATED. CASE CLOSED.
--- NOTE | 2020-01-15 13:15 | NUR ---
PT DISCHARGING TODAY TO HOME WITH [facility] FAXED DC ORDERS/SUMMARY SPOKE WITH MICHELLE IN ADM SHE RECEIVED ORDERS AND WILL CALL PT TO ARRANGE VISITS.
--- NOTE | 2020-01-15 13:25 | NUR ---
ASSUMED PT CARE THIS AM. PT VITAL SIGNS STABLE, A&OX4. PT COMPLAINED OF NO PAIN. PT AMBULATES TO RESTROOM. PT HAD SCDS ON AND CALLED APPROPRIATELY WHEN NEEDED. PT HYDRATED WELL. PT DISCHARGED WITH HOME HEALTH.
== END 2020-01-15 13:25 | disposition home health service (06) | DRG 871 ==
LOC: ER 15:13 → EROBS 18:41 → 3W 18:41 → 4W 01-11 14:52
PROVIDERS: Nurse Practitioner; Specialist; ADMIT Hospitalist; ATTEND Hospitalist
DX: A41.9 Sepsis, unspecified organism (principal); N17.0 Acute kidney failure with tubular necrosis; N39.0 Urinary tract infection, site not specified; Z16.12 Extended spectrum beta lactamase (ESBL) resistance; M48.00 Spinal stenosis, site unspecified; G62.9 Polyneuropathy, unspecified; I10 Essential (primary) hypertension; B96.20 Unspecified Escherichia coli [E. coli] as the cause of diseases classified elsewhere; M19.90 Unspecified osteoarthritis, unspecified site; Z20.828 Contact with and (suspected) exposure to other viral communicable diseases; Z85.46 Personal history of malignant neoplasm of prostate; Z90.49 Acquired absence of other specified parts of digestive tract; Z79.899 Other long term (current) drug therapy
CPT/HCPCS: 10040; 10080

== ENCOUNTER → 2020-10-01 | Outpatient (CLI) | payer OTHER, MEDICARE ==
[~2020-10-01] VITALS: Ht 185.4 cm; Wt 85.7 kg
[~2020-10-01] MED LIST changes: +B COMPLEX1 EACH PO; +CASODEX 50 MG T50 M1 PO; +CHILDREN'S ASPI81 M1 PO; +CIPRO250 M2 PO; +FLOMAX0.4 MG PO; +LASIX 40 MG TAB40 MG PO; +MACROBID 100 M100 M1 PO; +MAGNESIUM250 M1 PO; +ONE DAILY COMP1 EAC1 PO; +POTASSIUM20 PO; +[UNRECOGNIZED DRUG - CODE] PO
[2020-10-01 07:46] VITALS: BP 139/71
--- NOTE | 2020-10-01 07:53 | NUR ---
Pain Clinic Assessment: 1. History of Osteoarthritis: BACK History of Rheumatoid Arthritis: Not Applicable 2. Height: 6 ft. 1 in. 185.4 cm. Weight: 189.0 lb. oz. 85.730 kg. Patient's BMI: 24.9 3. Vital Signs: BP: 139/71 Pulse: 80 Resp: 16 Temp: 02 Sat: 99 ECG Mon: 4. Pain Intensity: 9 5. Fall Risk: Dizziness: N Needs help standing or walking: N Fallen in the last 3 months: N Fall risk comments: 6. Patient on Blood Thinner: None 7. History of Hypertension: N 8. Opioid Therapy greater than 6 weeks: N Opiate Contract Signed: 9. Risk Assessment Tool Provided: LOW-0 10. Functional Assessment Tool: 11. Recreational Drug Use: Never Drug Type: Tobacco Use: Never Smoker Tobacco Type: Amount or Packs/day: How Many Years: Alcohol Use: No Frequency: Quant:
--- NOTE | 2020-10-07 09:34 | HPC ---
[facility] [place] [address] PAIN MANAGEMENT CONSULTATION Name: GENIE VENTURA Room #: REG [facility].#: [id number] Admission: 10/01/20 Attend Phys: Manjinder Andre DO Discharge: Date of : 32 Report #: [id number] THIS REPORT FOR: cc: Brian Avila MD,Manjinder Low MD, DO ~ DOC #: [id number] cc: MD Manjinder Colon DO DATE OF SERVICE: 10/01/2020 REFERRING PHYSICIAN: Brian Avila MD CHIEF COMPLAINT: Low-back pain, bilateral buttock and posterolateral thigh pain. HISTORY OF PRESENT ILLNESS: As you know, the patient is a very pleasant 89-year-old male returning in followup visit to undergo next in the series of lumbar epidural injections. We last saw the patient in 2019 where he underwent a lumbar epidural injection, which gave excellent improvement in symptoms. He reports a 70% improvement in overall pain lasting for up to 3 months with a slow and progressive return of symptoms, no inciting injury or trauma. The patient returns today in followup visit to undergo next in the series of lumbar epidural injections in hopes of improving pain. He is placing current pain score 9/10. He denies injury or trauma that may have led to symptom reoccurrence. ALLERGIES: No known drug allergies. CURRENT MEDICATIONS: Multivitamin, ascorbic acid, magnesium oxide, omega-3 fish oil, cyanocobalamin, oxybutynin, valsartan, hydrochlorothiazide. SOCIAL HISTORY: The patient denies tobacco, alcohol or IV or illicit drug use. 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 He is accompanied by his daughter present in room today. IMAGING: No new imaging available. PQRS: The patient has known arthritic changes of the lumbar spine, bilateral knees and mildly in the hips. No rheumatoid arthritis, placing current pain score 9/10. He is not a fall risk, has not had a fall in last 3 months. He is not on blood thinners, but he is treated for hypertension. He is not on any opioids, has a low opioid addiction potential. Pain impact is 40/70, moderate interference of daily activities secondary to pain. PHYSICAL EXAMINATION: [facility] [address] [place] [address] PAIN MANAGEMENT CONSULTATION Name: GENIE VENTURA PIA Room #: REG [facility]#: [id number] Admission: 10/01/20 Attend Phys: Manjinder Andre DO Discharge: Date of : 32 Report #: [id number] VITAL SIGNS: Blood pressure 139/71, pulse 80, respiratory rate 16 and unlabored. The patient is 99% on room air. Height 6 feet 1 inch tall, weight 189 pounds, BMI calculated at 24.9. GENERAL: Well-developed, well-nourished, well-hydrated 89-year-old male appearing stated age, pain is rated today 9/10. HEENT: Normocephalic, atraumatic. Pupils equal, round and responsive. He is wearing a mask in compliance with COVID-19. Hearing is decreased. EXTREMITIES: Show no clubbing, no cyanosis, no edema. MUSCULOSKELETAL: Lower extremity strength is symmetrical 5/5, intact to light touch from L1 through S2 dermatomes. Straight leg raising in the seated position is negative. Supine straight leg raising is mildly positive on the right. Jerad's test is negative. Modified Gaenslen's is positive for axial back pain. Ankle clonus is negative. Babinski is negative. ASSESSMENT: 1. Symptomatic lumbar radiculopathy. 2. Lumbosacral spondylosis with radiculopathy. 3. Lumbar degeneration. 4. Chronic intractable pain. PLAN: 1. The patient returns today in followup visit having noted excellent benefit with the epidural injection provided in ____/2019. The patient reports pain improvement of up to 2-1/2 months with a slow and progressive return of symptoms over the next intervening couple of months. He has suffered no injury or trauma. He returns today in followup visit to undergo lumbar epidural injection under fluoroscopic guidance, as he is very pleased with response to the initial injection. The patient has been advised the risks and benefits of the procedure, states understood and wished to proceed. 2. No medication changes made at today's visit. The patient will continue current medical therapy as prior prescribed. 3. We will plan to see the patient back in followup visit on an as needed basis for the next in the series of epidural injections. We are hopeful he will once again see excellent benefit with the epidural injection and gain good and prolonged analgesic effect. PROCEDURE NOTE: DESCRIPTION OF PROCEDURE: L5-S1 interlaminar epidural steroid injection under fluoroscopic guidance. This is the first procedure of the second series that the patient is undergoing. After obtaining written consent, the patient was taken back to the fluoroscopy suite, placed in a prone position with pillow under the abdomen to decrease lumbar lordosis. The skin overlying the lumbosacral area was then prepped and [address] [address] PAIN MANAGEMENT CONSULTATION Name: GENIE VENTURA Room #: REG [facility] Rick#: [id number] Admission: 10/01/20 Attend Phys: Manjinder Andre DO Discharge: Date of : 32 Report #: [id number] draped in aseptic fashion. The L5-S1 vertebral interspace was then identified by AP fluoroscopy. The skin and subcutaneous tissue overlying the target site of injection was anesthetized with 3 mL 1% lidocaine. A 20-gauge 3-1/2 inch Tuohy needle was then advanced under fluoroscopic guidance towards the epidural space using a left parasagittal approach. The epidural space was identified using loss of resistance to air technique. After negative aspiration for heme or cerebrospinal fluid, a total of 1 mL of Omnipaque was injected. A lumbar epidurogram was confirmed using both AP and lateral fluoroscopy. After negative aspiration for heme or cerebrospinal fluid, 5 mL solution containing 2 mL 40 mg per mL 80 mg total triamcinolone along with 3 mL of lidocaine 1% was injected in increments. Contrast spread was noted post epidural space. The needle was then retracted approximately half way and needle tract flushed with 1 mL of 1% lidocaine. Needle was then removed. There were no apparent sensory or motor deficits in the lower extremity following the procedure. A sterile bandage was placed over the injection site. The heart rate, pulse, oximetry and blood pressure were continuously monitored after the procedure. There were no apparent complications. The patient tolerated the procedure well and was carefully escorted to the recovery room in stable condition. There were no apparent complications. After meeting discharge criteria, the patient was then discharged home. DO HIRAL Velazco/JOE/KISHAN <ELECTRONICALLY SIGNED> By: Manjinder Andre DO 10/07/2034 0726 4 Manjinder Andre DO /nt
== END | disposition home or self-care (01) ==
LOC: PAIN 06:45
PROVIDERS: ATTEND Anesthesiology Pain Medicine
DX: M51.16 Intervertebral disc disorders with radiculopathy, lumbar region (principal); M47.27 Other spondylosis with radiculopathy, lumbosacral region; G89.29 Other chronic pain; I10 Essential (primary) hypertension; M19.90 Unspecified osteoarthritis, unspecified site; Z98.890 Other specified postprocedural states; Z79.899 Other long term (current) drug therapy

== ENCOUNTER → 2021-02-03 | Outpatient (CLI) | payer OTHER, MEDICARE ==
[~2021-02-03] VITALS: Ht 185.4 cm; Wt 85.0 kg
[~2021-02-03] MED LIST changes: +HYDROCODON-ACE1 EAC7 PO
[2021-02-03 10:34] VITALS: BP 155/80
--- NOTE | 2021-02-03 10:51 | NUR ---
Pain Clinic Assessment: 1. History of Osteoarthritis: BACK History of Rheumatoid Arthritis: Not Applicable 2. Height: 6 ft. 1 in. 185.4 cm. Weight: 187.4 lb. oz. 85.004 kg. Patient's BMI: 24.7 3. Vital Signs: BP: 155/80 Pulse: 73 Resp: 18 Temp: 02 Sat: 100 ECG Mon: 4. Pain Intensity: 9 5. Fall Risk: Dizziness: N Needs help standing or walking: Y Fallen in the last 3 months: N Fall risk comments: 6. Patient on Blood Thinner: None 7. History of Hypertension: N 8. Opioid Therapy greater than 6 weeks: N Opiate Contract Signed: 9. Risk Assessment Tool Provided: LOW-0 10. Functional Assessment Tool: 11. Recreational Drug Use: Never Drug Type: Tobacco Use: Never Smoker Tobacco Type: Amount or Packs/day: How Many Years: Alcohol Use: No Frequency: Quant:
--- NOTE | 2021-02-04 08:04 | HPC ---
[facility] [place] [address] PAIN MANAGEMENT CONSULTATION Name: GENIE VENTURA Room #: REG [facility].#: [id number] Admission: 02/03/21 Attend Phys: Manjinder Andre DO Discharge: Date of : 32 Report #: [id number] THIS REPORT FOR: cc: Brian Avila MD,Manjinder Low MD, DO ~ cc: Artur Avila MD DATE OF SERVICE: 02/03/2021 CHIEF COMPLAINT: Low back pain, left lower extremity pain with paresthesias. HISTORY OF PRESENT ILLNESS: As you know, the patient is a very pleasant 89-year-old male who returns today in followup visit per the request of his primary care physician, Dr. Brian Avila to discuss recurrence of low back pain, left lower extremity pain with paresthesias. The patient reports today that he has had a slow and progressive return of symptoms that began about 01/26/2021. No inciting injury or trauma. The patient states pain begins in low back, radiates down the left leg. He has returned to our clinic to discuss options for treatment. He presents today without any imaging or studies for evaluation of the lumbar region. He has undergone previous epidural injections in the past with good benefit. He returns requesting a possible epidural injection under fluoroscopic guidance in hopes of improvement of suspected lumbar radiculopathy. ALLERGIES: No known drug allergies. CURRENT MEDICATIONS: See chart. SOCIAL HISTORY: The patient denies tobacco, alcohol or IV or illicit drug use. He is working on a part-time basis. He is accompanied by his daughter present in room today. IMAGING: No new imaging available. PQRS: The patient has known arthritic changes of lumbar spine, bilateral knees and mild arthritic changes in the hips. No rheumatoid arthritis. placing pain intensity today 9/10. He is not a fall risk, has not had a fall in last 3 months. He is not on blood thinners nor is he treated for hypertension. He has a low opioid addiction potential based on assessment tool. He is not on any opioids. Pain impact is 40/70, moderate interference of daily activities secondary to pain. PHYSICAL EXAMINATION: VITAL SIGNS: Blood pressure 155/80, pulse 73, respiratory rate 18 and unlabored. The patient 100% on room air, height 6 feet 1 inch tall, weight 187.4 pounds, BMI calculated 24.7. [facility] [address] [place] [address] PAIN MANAGEMENT CONSULTATION Name: GENIE VENTURA Room #: REG [facility]#: [id number] Admission: 02/03/21 Attend Phys: Manjinder Andre DO Discharge: Date of : 32 Report #: [id number] GENERAL: Well-developed, well-nourished, well-hydrated 89-year-old male appearing stated age, pain is rated today 9/10. HEENT: Normocephalic, atraumatic. Pupils equal, round and responsive. EXTREMITIES: Show no clubbing, no cyanosis. No appreciable edema. MUSCULOSKELETAL: Lower extremity strength remains symmetrical again today. There is slight giveaway strength noted with hip flexion, knee extension on the left due to pain generation. Seated straight leg raising negative. Supine straight leg raising is positive on the left. Jerad's test is negative. Modified Gaenslen's positive for axial back pain. Ankle clonus negative. Babinski's is negative. Gait mildly antalgic favoring left lower extremity. ASSESSMENT: 1. Symptomatic lumbar radiculopathy. 2. Lumbosacral spondylosis with radiculopathy. 3. Lumbar degeneration. 4. Chronic intractable pain. PLAN: 1. The patient returns today in followup visit, describing what appears to be lumbar radiculopathy involving low back and left lower extremity. Pain is radiating from the buttock area down the leg. He and I discussed at length today the treatment options for recurrent lumbar radiculopathy. These would include the following. We discussed physical therapy, stretching exercises and core strengthening as a treatment approach. We discussed medication management with suggestions of treatment to include amitriptyline, nortriptyline, Cymbalta, Lyrica or gabapentin. We discussed lumbar epidural injections under fluoroscopic guidance for which the patient has noted excellent benefit in the past. We discussed dorsal column stimulator and ultimately surgical decompression if necessary of the lumbar spine. After reviewing risks and benefits of all proposed treatment options, the patient chose to undergo lumbar epidural injection under fluoroscopic guidance. 2. The patient was advised risks and benefits of a lumbar epidural injection. The risks include but are not necessarily limited to bleeding, bruising, infection, worsening pain, no relief of pain, also risk of temporary or permanent muscle weakness, temporary or permanent nerve damage, possible paralysis, post-dural puncture headache and . The patient states understood and wished to proceed. 3. No medication changes made at today's visit. The patient will continue current medical therapy as prior prescribed. 4. Plan to see the patient back in followup visit on an as needed basis for the next in the series of lumbar epidural injections. We are hopeful the patient will see good and prolonged benefit with the epidural injection provided today. PROCEDURE NOTE [address] [address] PAIN MANAGEMENT CONSULTATION Name: GENIE VENTURA Room #: REG [facility]#: [id number] Admission: 02/03/21 Attend Phys: Manjinder Andre DO Discharge: Date of : 32 Report #: [id number] DESCRIPTION OF PROCEDURE: L5-S1 left paramedian epidural steroid injection under fluoroscopic guidance. After obtaining written consent, the patient was taken back to fluoroscopy suite, placed in prone position with pillow under abdomen to decrease lumbar lordosis. Skin overlying lumbosacral area prepped and draped in aseptic fashion. The lumbar intervertebral spaces were identified by AP fluoroscopy. Skin and subcutaneous tissue overlying target site injection anesthetized with 3 mL 1% lidocaine. A 20 gauge 3-1/2 inch Tuohy needle advanced under fluoroscopic guidance towards the epidural space using a left paramedian approach. Epidural space identified using loss of resistance to air technique. After negative aspiration for heme or cerebrospinal fluid, 1 mL of Omnipaque injected. Lumbar epidurogram was confirmed using both AP and lateral fluoroscopy. After negative aspiration for heme or cerebrospinal fluid, 5 mL solution containing 2 mL 40 mg per mL 80 mg total triamcinolone along with 3 mL of lidocaine 1% injected slowly. Needle retracted retirement flushed with 1 mL of 1% lidocaine, then removed. Sterile bandage placed over injection site. No new motor deficits present in lower extremity following procedure. The patient tolerated the procedure well, carefully escorted to recovery room in stable condition. No apparent complications. After meeting discharge criteria, the patient discharged home. <ELECTRONICALLY SIGNED> By: Manjinder Andre DO 02/04/21 [id number] Manjinder Andre DO /nt
== END | disposition home or self-care (01) ==
LOC: PAIN 06:56
PROVIDERS: ATTEND Anesthesiology Pain Medicine
DX: M51.16 Intervertebral disc disorders with radiculopathy, lumbar region (principal); M47.27 Other spondylosis with radiculopathy, lumbosacral region; G89.29 Other chronic pain; M19.90 Unspecified osteoarthritis, unspecified site; Z98.890 Other specified postprocedural states

== ENCOUNTER → 2021-04-21 | Emergency (ER) | payer OTHER, MEDICARE ==
[2021-04-21 19:22] VITALS: BP 147/69
== END ==
LOC: ER 19:02
DX: Z53.21 Procedure and treatment not carried out due to patient leaving prior to being seen by health care provider (principal)